=== PATIENT | female | born 1990 | race Caucasian/White ===

== ENCOUNTER 2024-01-25 12:24 | Inpatient (IN) | payer BC ==
[2024-01-25 12:46] VITALS: BMI 38.7
[2024-01-25] MEDS ORDERED: hydrALAZINE 20 MG/ML VIAL SLOW IVP PRN ×3 (12:52→21:50)
[2024-01-25] MEDS: hydrALAZINE 20 MG/ML VIAL ONE (13:02)
[2024-01-25] MEDS: Labetalol HCl 100 MG/20 ML VIAL SLOW IVP PRN ×3 (13:20→13:53)
[2024-01-25] MEDS ORDERED: Lorazepam 2 MG/ML VIAL SLOW IVP PRN ×2 (13:24→21:50)
[2024-01-25] MEDS ORDERED: Calcium Gluc 4.6 MEQ/10 ML (100 MG/ML) SLOW IVP PRN ×3 (13:24→21:50)
[2024-01-25 13:31] LABS: #Basophils 0.02 10x3/uL (0.0-0.2); #Eosinophils 0.04 10x3/uL (0.0-0.5); #Monocytes 0.56 10x3/uL (0.0-1.1); #Neutrophils 5.15 10x3/uL (1.5-8.4); %Basophils 0.3 % (0.0-2.0); %Eosinophils 0.5 % (0.0-6.0); %Lymphocytes 24.9 % (18.0-47.0); %Monocytes 7.2 % (0.0-10.0); %Neutrophils 66.1 % (40.0-75.0); Hematocrit 30.2 % (34.9-44.5); Hemoglobin 9.2 g/dL (12.0-15.5); Mean Corpuscular HGB CONC 30.5 g/dL (32.0-36.0); Mean Corpuscular Hemoglobin 22.9 pg (27.0-33.0); Mean Corpuscular Volume 75.1 fL (81.6-98.3); Mean Platelet Volume 11.5 fL (7.4-10.4); Platelet Count 211 10x3/uL (150-450); RBC Distribution Width 15.6 % (11.5-14.5); Red Blood Cell (RBC) Count 4.02 10x6/uL (3.90-5.03); White Blood Cell (WBC) Count 7.8 10x3/uL (3.5-10.5)
[2024-01-25 13:37] LABS: ALT (SGPT) 52 U/L (8-55); AST (SGOT) 41 U/L (5-34); Albumin 2.2 g/dL (3.5-5.0); Alkaline Phosphatase 233 U/L (40-110); Anion Gap 14 mmol/L (10-20); BUN (Urea Nitrogen) 6 mg/dL (7.0-18.7); Bilirubin, Total 0.7 mg/dL (0.2-1.2); Calc. Creatinine Clearance 163 mL/min (70-130); Carbon Dioxide 17 mmol/L (22-29); Chloride 110 mmol/L (98-107); Estimated GFR 118; Glucose 67 mg/dL (70-105); Potassium 3.8 mmol/L (3.5-5.1); Protein, Total 6.2 g/dL (6.0-8.3); Sodium 137 mmol/L (136-145)
[2024-01-25] MEDS: Lactated Ringer's 1,000 ML IV SCH (13:39)
[2024-01-25] MEDS: Magnesium Sulfate 20 gm/500 ml 20 GM/500 ML BAG IVPB SCH (13:39)
[2024-01-25] MEDS: Magnesium Sulfate 20 gm/500 ml 20 GM/500 ML BAG ONE (13:40)
[2024-01-25] MEDS ORDERED: Promethazine HCl 25 MG/ML VIAL IM PRN ×3 (15:05→21:50)
[2024-01-25] MEDS ORDERED: Bicitra 30 ML UDCUP PO PRN (15:05)
[2024-01-25] MEDS ORDERED: Famotidine/PF 20 mg/2ml Vial SLOW IVP PRN (15:05)
[2024-01-25] MEDS ORDERED: Ondansetron PF 4 MG/2 ML Vial IVP PRN ×2 (15:05→17:02)
[2024-01-25] MEDS ORDERED: Tranexamic Acid 1,000 MG/10 ML VIAL IVP PRN (15:05)
[2024-01-25] MEDS ORDERED: Misoprostol 200 MCG TAB PR PRN (15:05)
[2024-01-25] MEDS ORDERED: Diphenoxylate HCl/Atropine Tablet PO PRN (15:05)
[2024-01-25] MEDS ORDERED: Carboprost 250 MCG/ML AMP IM PRN (15:05)
[2024-01-25] MEDS ORDERED: Acetaminophen 500 MG TAB PO PRN (15:05)
[2024-01-25] MEDS ORDERED: Lactated Ringer's 1,000 ML IV SCH (15:15)
[2024-01-25] MEDS ORDERED: Oxytocin 30 units/NS 500 ML 500 ML IV SCH (15:15)
[2024-01-25] MEDS ORDERED: CEFAZOLIN 2 GM in Sodium Chloride 0.9% 100 ML IVPB SCH (15:15)
[2024-01-25 16:09] LABS: Syphilis Antibody Nonreactive (Nonreactive); Syphilis Antibody Index 0.07 S/CO (<1.00 Non-Reactive)
[2024-01-25] MEDS ORDERED: diphenhydrAMINE 50 MG/ML VIAL IVP PRN (17:02)
[2024-01-25] MEDS ORDERED: fentaNYL 50 mcg/mL 1 mL Vial SLOW IVP PRN (17:02)
[2024-01-25] MEDS ORDERED: Moisturizing Cream (Eucerin) 113 GM JAR TOP PRN (17:02)
[2024-01-25] MEDS ORDERED: HYDROmorphone 0.5 MG/0.5 ML SYRINGE SLOW IVP PRN (17:02)
[2024-01-25] MEDS ORDERED: Naloxone HCl 0.4 mg/ml Vial IV PRN (17:02)
[2024-01-25] MEDS ORDERED: Naloxone HCl 0.4 mg/ml Vial IVP PRN ×2 (17:02)
[2024-01-25] MEDS ORDERED: Communication Order-Pharmacy FS SCH (17:15)
[2024-01-25] MEDS: CEFAZOLIN 2 GM VIAL ONE (17:27)
[2024-01-25] MEDS: fentaNYL 50 mcg/mL 1 mL Vial ONE (17:27)
[2024-01-25] MEDS: hydrALAZINE 20 MG/ML VIAL SLOW IVP SCH ×2 (17:27→17:28)
[2024-01-25] MEDS: Ondansetron PF 4 MG/2 ML Vial ONE (17:28)
[2024-01-25] MEDS: Oxytocin 10 UNITS/ML VIAL ONE ×2 (17:28→17:29)
[2024-01-25] MEDS: Morphine PF 10 MG/10 ML VIAL ONE (17:28)
[2024-01-25] MEDS: Phenylephrine 40 MG/NS 250 ML 250 ML ONE (17:28)
[2024-01-25] MEDS: PHENYLEPHRINE-NS 100 MCG/ML 10 ML SYRINGE ONE (17:28)
[2024-01-25] MEDS: Famotidine/PF 20 mg/2ml Vial ONE (17:29)
[2024-01-25] MEDS: Dexamethasone 10 MG/ML VIAL ONE (17:29)
[2024-01-25] MEDS: Ketorolac Tromethamine 30 MG (1 mL) VIAL ONE (17:29)
[2024-01-25] MEDS: Promethazine HCl 25 MG/ML VIAL IM PRN (18:33)
[2024-01-25] MEDS: Meperidine HCl/PF 25 MG (1 mL) VIAL SLOW IVP PRN (19:08)
[2024-01-25] MEDS: Ondansetron PF 4 MG/2 ML Vial IVP PRN ×2 (19:08→23:10)
[2024-01-25] MEDS: Promethazine HCl 25 MG/ML VIAL IM SCH (19:40)
[2024-01-25 20:26] LABS: Hep B Surf AB REACTIVE (NonReactive)
[2024-01-25] MEDS: hydrALAZINE 20 MG/ML VIAL SLOW IVP PRN (20:34)
[2024-01-25] MEDS ORDERED: NIFEdipine 10 MG CAP PO PRN ×2 (21:04)
[2024-01-25] MEDS ORDERED: Labetalol HCl 100 MG/20 ML VIAL SLOW IVP PRN ×3 (21:04→21:50)
[2024-01-25] MEDS: NIFEdipine XL 30 MG ER.TAB PO SCH (21:40)
[2024-01-25] MEDS ORDERED: Simethicone Chewable 80 MG TAB PO PRN (21:50)
[2024-01-25] MEDS ORDERED: Boostrix 0.5 ML (Tdap) VIAL (>/=7 yrs of age) IM ONE (21:50)
[2024-01-25] MEDS ORDERED: Lanolin Ointment 7 GM TUBE TOP PRN (21:50)
[2024-01-25] MEDS ORDERED: Magnesium Sulfate 20 gm/500 ml 20 GM/500 ML BAG IVPB SCH (21:50)
[2024-01-25] MEDS ORDERED: diphenhydrAMINE 25 MG CAP PO PRN (21:50)
[2024-01-25] MEDS ORDERED: Bisacodyl 10 MG SUPP PR PRN (21:50)
[2024-01-25] MEDS: Ketorolac Tromethamine 30 MG (1 mL) VIAL IVP PRN (22:40)
[2024-01-25] MEDS: Docusate 100 MG CAP PO SCH (22:47)
[2024-01-25] MEDS: Ferrous Sulfate 325 MG TAB PO SCH (22:47)
[2024-01-25] MEDS ORDERED: Promethazine HCl 25 MG in Sodium Chloride 0.9% 50 ML IVPB PRN (22:54)
[2024-01-26 04:07] LABS: Hematocrit 27.6 % (34.9-44.5); Hemoglobin 8.4 g/dL (12.0-15.5); Mean Corpuscular HGB CONC 30.4 g/dL (32.0-36.0); Mean Corpuscular Hemoglobin 23.2 pg (27.0-33.0); Mean Corpuscular Volume 76.2 fL (81.6-98.3); Mean Platelet Volume 11.9 fL (7.4-10.4); Platelet Count 206 10x3/uL (150-450); RBC Distribution Width 16.1 % (11.5-14.5); Red Blood Cell (RBC) Count 3.62 10x6/uL (3.90-5.03); White Blood Cell (WBC) Count 11.6 10x3/uL (3.5-10.5)
[2024-01-26] MEDS ORDERED: HYDROcodone/Acetaminophen 5/325 mg Tablet PO PRN ×2 (05:15)
[2024-01-26] MEDS ORDERED: Lorazepam 2 MG/ML VIAL SLOW IVP PRN (05:15)
[2024-01-26] MEDS: Acetaminophen 325 MG TAB PO PRN (06:33)
[2024-01-26] MEDS ORDERED: Prenatal Vitamin 1 TAB PO SCH (09:00)
[2024-01-26] MEDS: hydrALAZINE 20 MG/ML VIAL SLOW IVP PRN (09:09)
[2024-01-26] MEDS: Docusate 100 MG CAP PO SCH ×2 (09:10→21:26)
[2024-01-26] MEDS: Ferrous Sulfate 325 MG TAB PO SCH ×2 (09:11→09:25)
[2024-01-26] MEDS: Labetalol HCl 200 MG TAB PO SCH ×2 (14:36→21:26)
[2024-01-26] MEDS ORDERED: Bisacodyl 10 MG SUPP PR PRN (18:09)
[2024-01-26] MEDS ORDERED: Promethazine HCl 25 MG/ML VIAL IM PRN (18:09)
[2024-01-26] MEDS ORDERED: Acetaminophen 325 MG TAB PO PRN (18:09)
[2024-01-26] MEDS ORDERED: Lanolin Ointment 7 GM TUBE TOP PRN (18:09)
[2024-01-26] MEDS ORDERED: Ondansetron PF 4 MG/2 ML Vial IVP PRN (18:09)
[2024-01-26] MEDS ORDERED: diphenhydrAMINE 25 MG CAP PO PRN (18:09)
[2024-01-26] MEDS ORDERED: hydrALAZINE 20 MG/ML VIAL SLOW IVP PRN (18:09)
[2024-01-26] MEDS: Ibuprofen 800 MG TAB PO SCH (21:26)
[2024-01-26] MEDS: HYDROcodone/Acetaminophen 5/325 mg Tablet PO PRN (23:22)
[2024-01-26] MEDS: Simethicone Chewable 80 MG TAB PO PRN (23:22)
[2024-01-27] MEDS ORDERED: Ibuprofen 800 MG TAB PO SCH (06:00)
[2024-01-27] MEDS: NIFEdipine XL 30 MG ER.TAB PO SCH ×2 (08:10→20:44)
[2024-01-27] MEDS: Prenatal Vitamin 1 TAB PO SCH (08:11)
[2024-01-27] MEDS: HYDROcodone/Acetaminophen 5/325 mg Tablet PO PRN (12:28)
[2024-01-27] MEDS: Labetalol HCl 200 MG TAB PO SCH (14:28)
[2024-01-27] MEDS: Boostrix 0.5 ML (Tdap) VIAL (>/=7 yrs of age) IM ONE (16:29)
[2024-01-28] MEDS: NIFEdipine XL 60 MG ER.TAB PO SCH (08:52)
[2024-01-28 12:00] VITALS: TEMP 98.3
[2024-01-28 17:45] VITALS: BP 139/77
== END 2024-01-28 16:45 | disposition home or self-care (01) | DRG 788 ==
LOC: CSHLD/OP 12:24 → CSHLD 13:11 → CSHPP 01-26 17:56
PROVIDERS: ADMIT Student in an Organized Health Care Education/Training Program; ATTEND Student in an Organized Health Care Education/Training Program
PROC: 10D00Z1 Extraction of Products of Conception, Low, Open Approach (ICD-10-PCS; principal; 2024-01-25)
DX: O34.211 Maternal care for low transverse scar from previous cesarean delivery (principal); O24.429 Gestational diabetes mellitus in childbirth, unspecified control; Z3A.35 35 weeks gestation of pregnancy; Z37.0 Single live birth; O11.4 Pre-existing hypertension with pre-eclampsia, complicating childbirth; Z79.84 Long term (current) use of oral hypoglycemic drugs; O99.02 Anemia complicating childbirth
CPT/HCPCS: 36415; 51702; 80053; 85025; 85027; 86706; 86780; 86850; 86900; 86901; 99285; J0360; J1100; J1885; J2175; J2274; J2405; J2550; J2590; J3010; J3475; J3490; J7120